=== PATIENT | female | born 1955 | race Two or more races ===

== ENCOUNTER 2019-01-27 10:40 | Inpatient (IN) | payer OTHER ==
[~2019-01-27] VITALS: Ht 152.4 cm; Wt 62.6 kg
[2019-02-09] MEDS ORDERED: AMILODIPINE PO (11:00)
[2019-02-09] MEDS ORDERED: BUPROP PO (11:01)
[2019-02-09] MEDS ORDERED: GLIMEPIRIDE2 MG PO (11:01)
[2019-02-09] MEDS ORDERED: CLONAZEPAM0.5 MG PO (11:01)
[2019-02-09] MEDS ORDERED: FOSAMA PO (11:02)
[2019-02-09] MEDS ORDERED: [UNRECOGNIZED DRUG - OTHER] PO (11:02)
[2019-02-09] MEDS ORDERED: ESSENTIAL DAIL1 EACH PO (11:03)
[2019-02-09] MEDS ORDERED: GABAPENT PO (11:04)
[2019-02-09] MEDS ORDERED: SENNA LAXATIVE8.6 MG PO (11:04)
[2019-02-15] MEDS ORDERED: GABAPENTIN400 MG PO (09:05)
[2019-02-15] MEDS ORDERED: NORVASC5 MG PO (09:06)
[2019-02-15] MEDS ORDERED: ADULT LOW DOSE81 M1 PO (09:06)
[2019-02-15] MEDS ORDERED: LOSARTAN POTAS100 MG PO (09:07)
[2019-02-15] MEDS ORDERED: RISPERDAL0.5 MG PO (09:07)
[2019-02-15] MEDS ORDERED: BUPROPION HCL100 M1 PO (09:07)
[2019-02-15] MEDS ORDERED: ALENDRONATE SOD35 MG PO (09:08)
[2019-02-15] MEDS ORDERED: PRILOSEC OTC20 MG PO (09:09)
== END 2019-02-18 17:03 | disposition home or self-care (01) | DRG 331 ==
LOC: SURH 02-15 08:52 → O/R 02-15 08:52 → SURG 02-15 09:00 → SURH 02-15 17:24
PROVIDERS: ADMIT Colon & Rectal Surgery
PROC: 0DJD8ZZ Inspection of Lower Intestinal Tract, Via Natural or Artificial Opening Endoscopic (ICD-10-PCS; 2019-02-15)
PROC: 0DTN4ZZ Resection of Sigmoid Colon, Percutaneous Endoscopic Approach (ICD-10-PCS; principal; 2019-02-15 17:00)
DX: K57.32 Diverticulitis of large intestine without perforation or abscess without bleeding (principal)

== ENCOUNTER 2020-03-16 05:45 | Day surgery (SDC) | payer OTHER ==
[~2020-03-16 05:45] MED LIST: ADULT LOW DOSE81 M1 PO; ALENDRONATE SOD35 MG PO; AMILODIPINE PO; BUPROP PO; BUPROPION HCL100 M1 PO; CLONAZEPAM0.5 MG PO; ESSENTIAL DAIL1 EACH PO; FOSAMA PO; GABAPENT PO; GABAPENTIN400 MG PO; GLIMEPIRIDE2 MG PO; LOSARTAN POTAS100 MG PO; NORVASC5 MG PO; PRILOSEC OTC20 MG PO; RISPERDAL0.5 MG PO; SENNA LAXATIVE8.6 MG PO; [UNRECOGNIZED DRUG - OTHER] PO
== END 2020-03-16 10:30 | disposition home or self-care (01) ==
LOC: AMB-ENDOS 05:45
PROVIDERS: ATTEND Colon & Rectal Surgery
DX: K57.32 Diverticulitis of large intestine without perforation or abscess without bleeding (principal); K64.2 Third degree hemorrhoids; Z20.828 Contact with and (suspected) exposure to other viral communicable diseases